=== PATIENT | female | born 1995 ===

== ENCOUNTER 2016-06-16 01:23 | Emergency (ER) | payer OTHER ==
[2016-06-16] MEDS ORDERED: IBUPROFEN 600 MG TABLET ONE (03:34)
[2016-06-16] MEDS ORDERED: OXYMETAZOLINE HCL 0.05% 30 SPRAYS/BOT NS ONE (03:35)
[2016-06-16] MEDS ORDERED: PREDNISONE 20 MG TABLET ONE (03:35)
== END 2016-06-16 03:49 | disposition home or self-care (01) ==
LOC: ED 01:23
DX: H65.92 Unspecified nonsuppurative otitis media, left ear (principal); R51 Headache; H69.92 Unspecified Eustachian tube disorder, left ear